=== PATIENT | female | born 1995 | race African-American/Black ===

== ENCOUNTER 2016-06-20 13:25 | Emergency (ER) | payer MEDICAID ==
[2016-06-20] MEDS ORDERED: NS 1,000 ML IV ONE (13:59)
--- NOTE | 2016-06-20 14:02 | EDPHY ---
H & P Stated Complaint: vaginal bleeding for 2 months Time Seen by Provider: 06/20/16 13:49 HPI/ROS: CHIEF COMPLAINT: Vaginal bleeding HISTORY OF PRESENT ILLNESS: Patient is a 21-year-old virgin from [facility] who comes to the emergency department complaining of frequent spotting and vaginal bleeding for the last 2 months. She states that it is constant bleeding small amounts every day. Occasionally heavy as well. She has not had a fever. She denies having any pain. She does not take any medications. She states that this did happen a few times before while she was living in [facility] and she was started on control pills for a few months and this seemed to resolve the problem. She has not taken anything in over a year. She denies having any GI or urinary symptoms. REVIEW OF SYSTEMS: Constitutional: denies: chills, fever, recent illness, recent injury EENTM: denies: blurred vision, double vision, nose congestion Respiratory: denies: cough, shortness of breath Cardiac: denies: chest pain, irregular heart rate, lightheadedness, palpitations Gastrointestinal/Abdominal: denies: abdominal pain, diarrhea, nausea, vomiting, blood streaked stools Genitourinary: See HPI denies: dysuria, frequency, hematuria, pain Musculoskeletal: denies: joint pain, muscle pain Skin: denies: lesions, rash, jaundice, bruising Neurological: denies: headache, numbness, paresthesia, tingling, dizziness, weakness Hematologic/Lymphatic: denies: blood clots, easy bleeding, easy bruising Immunologic/allergic: denies: HIV/AIDS, transplant EXAM: GENERAL: Well-appearing, well-nourished and in no acute distress. HEAD: Atraumatic, normocephalic. EYES: Pupils equal round and reactive to light, extraocular movements intact, sclera anicteric, conjunctiva are normal. ENT: TMs normal, nares patent, oropharynx clear without exudates. Moist mucous membranes. NECK: Normal range of motion, supple without lymphadenopathy or JVD. LUNGS: Breath sounds clear to auscultation bilaterally and equal. No wheezes rales or rhonchi. HEART: Regular rate and rhythm without murmurs, rubs or gallops. ABDOMEN: Soft, nontender, normoactive bowel sounds. No guarding, no rebound. No masses appreciated. BACK: No CVA tenderness, no spinal tenderness, step-offs or deformities EXTREMITIES: Normal range of motion, no pitting or edema. No clubbing or cyanosis. NEUROLOGICAL: Cranial nerves II through XII grossly intact. Normal speech, normal gait. 5/5 strength, normal movement in all extremities, normal sensation PSYCH: Normal mood, normal affect. SKIN: Warm, dry, normal turgor, no visible rashes or lesions. Source: Patient Exam Limitations: No limitations - Personal History LMP (Females 10-55): Irregular Current Tetanus/Diphtheria Vaccine: Unsure Current Tetanus Diphtheria and Acellular Pertussis (TDAP): Unsure - Medical/Surgical History Hx Asthma: No Hx Chronic Respiratory Disease: No Hx Diabetes: No Hx Cardiac Disease: No Hx Renal Disease: No Hx Cirrhosis: No Hx Alcoholism: No Hx HIV/AIDS: No Hx Splenectomy or Spleen Trauma: No Other PMH: denies - Family History Significant Family History: No pertinent family hx - Social History Smoking Status: Never smoked Alcohol Use: Sober Drug Use: None Constitutional: Initial Vital Signs Temperature (C) 36.6 C 06/20/16 13:27 Heart Rate 74 06/20/16 13:27 Respiratory Rate 16 06/20/16 13:27 Blood Pressure 114/74 06/20/16 13:27 O2 Sat (%) 97 06/20/16 13:27 O2 Delivery Mode Room Air Allergies/Adverse Reactions: No Known Allergies Allergy (Verified 06/20/16 13:32) Home Medications: Medication Instructions Recorded Ethinyl Estradiol/Drospirenone 1 each PO DAILY #1 pkg 06/20/16 [Charisse 28 Tablet] Medical Decision Making ED Course/Re-evaluation: 4:50 p.m. we discussed the lab and imaging results. The patient is reassured. She continues to decline pelvic exam. She states that her bleeding is only spotting. She is requesting to be started on control pills. I will start her on 1 and have [facility]. She declines further workup or testing at this time. Differential Diagnosis: Partial list of the Differential diagnosis considered include but were not limited to; dysfunctional uterine bleeding, , urinary tract infection and although unlikely based on the history and physical exam, I also considered appendicitis, ovarian cyst, ovarian torsion, STD. I discussed these differential diagnoses and the plan with the patient as well as the usual and expected course. The patient understands that the diagnosis is provisional and that in medicine we are not always correct and that further workup is often warranted. Usual and customary warnings were given. All of the patient's questions were answered. The patient was instructed to return to the emergency department should the symptoms at all worsen or return, otherwise to followup with the physician as we discussed. - Data Points Laboratory Results: Laboratory Results 06/20/16 14:02 06/20/16 14:02 06/20/16 06/20/16 14:40 14:02 WBC 7.57 10^3/uL (3.80-9.50) RBC 5.46 H 10^6/uL (4.18-5.33) Hgb 13.2 g/dL (12.6-16.3) Hct 41.3 % (38.0-47.0) MCV 75.6 L fL (81.5-99.8) MCH 24.2 L pg (27.9-34.1) MCHC 32.0 L g/dL (32.4-36.7) RDW 16.0 H % (11.5-15.2) Plt Count 257 10^3/uL (150-400) MPV 12.5 H fL (8.7-11.7) Neut % (Auto) 62.0 % (39.3-74.2) Lymph % (Auto) 31.2 % (15.0-45.0) [place] % (Auto) 4.5 % (4.5-13.0) Eos % (Auto) 1.5 % (0.6-7.6) Baso % (Auto) 0.5 % (0.3-1.7) Nucleat RBC Rel Count 0.0 % (0.0-0.2) Absolute Neuts (auto) 4.70 10^3/uL (1.70-6.50) Absolute Lymphs (auto) 2.36 10^3/uL (1.00-3.00) Absolute Monos (auto) 0.34 10^3/uL (0.30-0.80) Absolute Eos (auto) 0.11 10^3/uL (0.03-0.40) Absolute Basos (auto) 0.04 10^3/uL (0.02-0.10) Absolute Nucleated RBC 0.00 10^3/uL (0-0.01) Immature Gran % 0.3 % (0.0-1.1) Immature Gran # 0.02 10^3/uL (0.00-0.10) Sodium 146 H mEq/L (134-144) Potassium 4.1 mEq/L (3.5-5.2) Chloride 109 mEq/L (97-110) Carbon Dioxide 22 mEq/l (22-31) Anion Gap 15 mEq/L (8-16) BUN 12 mg/dL (7-23) Creatinine 0.7 mg/dL (0.6-1.0) Estimated GFR > 60 Glucose 88 mg/dL (70-100) Calcium 9.2 mg/dL (8.5-10.4) Beta HCG, Qual NEGATIVE Urine Color YELLOW Urine Appearance CLEAR Urine pH 7.0 (5.0-7.5) Ur Specific [place] 1.021 (1.002-1.030) Urine Protein NEGATIVE (NEGATIVE) Urine Ketones NEGATIVE (NEGATIVE) Urine Blood 3+ H (NEGATIVE) Urine Nitrate NEGATIVE (NEGATIVE) Urine Bilirubin NEGATIVE (NEGATIVE) Urine Urobilinogen NEGATIVE EU (0.2-1.0) Ur Leukocyte Esterase NEGATIVE (NEGATIVE) Urine RBC 50-182 H /hpf (0-3) Urine WBC 3-5 H /hpf (0-3) Ur Epithelial Cells TRACE /lpf (NONE-1+) Urine Mucus TRACE /lpf (NONE-1+) Ur Culture Indicated? NOT INDICATED (NI) Urine Glucose NEGATIVE (NEGATIVE) Medications Given: Discontinued Medications Sodium Chloride (Ns) 1,000 mls @ 0 mls/hr IV ONCE ONE PRN Reason: Wide Open Stop: 06/20/16 14:00 Last Admin: 06/20/16 14:15 Dose: 1,000 mls Departure - Departure Disposition: Home, Routine, Self-Care Clinical Impression: Dysfunctional uterine bleeding Condition: Fair Instructions: Dysfunctional Uterine Bleeding (ED) Referrals: NONE *PRIMARY CARE P,. [Primary Care Provider] - As per Instructions Joi Cooney MD [Medical Doctor] - As per Instructions Prescriptions: Ethinyl Estradiol/Drospirenone [Charisse 28 Tablet] 1 each PO DAILY #1 pkg
[2016-06-20 14:15] LABS: % IMMATURE GRANULYOCYTES 0.3 % (0.0-1.1); ABSOLUTE IMMATURE GRANULOCYTES 0.02 10^3/uL (0.00-0.10); ADD DIFF? NO; ADD MORPH? NO; ADD SCAN? NO; ATYPICAL LYMPHOCYTE FLAG 30 (0-99); FRAGMENT RBC FLAG 20 (0-99); HEMATOCRIT 41.3 % (38.0-47.0); HEMOGLOBIN 13.2 g/dL (12.6-16.3); LEFT SHIFT FLG 0 (0-99); LIPEMIA HEMOLYSIS FLAG 80 (0-99); MEAN CELL HEMOGLOBIN 24.2 pg (27.9-34.1); MEAN CELL VOLUME 75.6 fL (81.5-99.8); MEAN PLATELET VOLUME 12.5 fL (8.7-11.7); PLATELET CLUMPS FLAG 0 (0-99); PLATELET COUNT 257 10^3/uL (150-400); RED BLOOD CELL COUNT 5.46 10^6/uL (4.18-5.33)
[2016-06-20 14:27] LABS: ANION GAP 15 mEq/L (8-16); CALCIUM 9.2 mg/dL (8.5-10.4); CARBON DIOXIDE 22 mEq/l (22-31); CHLORIDE 109 mEq/L (97-110); CREATININE 0.7 mg/dL (0.6-1.0); GLOMERULAR FILTRATION RATE > 60; GLUCOSE 88 mg/dL (70-100); POTASSIUM 4.1 mEq/L (3.5-5.2); SODIUM 146 mEq/L (134-144)
[2016-06-20 14:47] LABS: COLOR YELLOW; LEUKOCYTE ESTERASE,URINE NEGATIVE (NEGATIVE); NITRITE,URINE NEGATIVE (NEGATIVE)
[2016-06-20 14:53] LABS: MUCUS TRACE /lpf (NONE-1+); RBC,URINE 50-182 /hpf (0-3)
--- NOTE | 2016-06-20 16:29 | US ---
Transabdominal Pelvic Ultrasound History: 21-year-old, bleeding for 2 months consistently with occasional cramping. Comparison: None available. Findings: Transabdominal imaging only was performed. The uterus is retroflexed, measuring 6.8 x 4.7 x 3.1 cm. T he endometrium is homogeneous and measures 11 mm. The left ovary measures 3.1 x 2.2 x 3.2 cm. The rig ht ovary measures 2.3 x 1.6 x 4.1 cm. No adnexal masses are identified. Normal arterial blood flow i s documented to both ovaries by Doppler ultrasound. Trace free fluid is present. The bladder is rajat l. Impression: Normal pelvic ultrasound. Findings discussed with Ramez Beckett today at 1627 hours.
[2016-06-20 17:07] VITALS: BP 113/81; PULSE 63; RESP 18; TEMP 98.2; O2SAT 98
== END 2016-06-20 18:14 | disposition home or self-care (01) ==
DX: N93.8 Other specified abnormal uterine and vaginal bleeding (principal)

== ENCOUNTER 2017-09-03 08:47 | Emergency (ER) | payer MEDICAID ==
[2017-09-03 08:55] VITALS: BP 122/89
--- NOTE | 2017-09-03 09:11 | EDPHY ---
H & P Smoking Status: Current some day smoker Time Seen by Provider: 09/03/17 09:03 HPI/ROS: CHIEF COMPLAINT: "Toothache" HISTORY OF PRESENT ILLNESS: 22-year-old immunocompetent female with no pre- existing dentist complaining of 4 days of right molar pain. No trismus no drooling. No fetid odor or foul taste in mouth. Questionable soft tissue swelling and asymmetry to the face subjectively. No fever no chills. No change in voice. PHYSICAL EXAM (Prior to examination, patient consented to physical exam, hands were washed and my usual and customary physical exam procedures followed) 1) GENERAL: Well-developed, well-nourished, alert and oriented. Appears to be in no acute distress. 2) HEAD: Normocephalic 3) HEENT: sclera anicteric. No trismus no drooling. Tender to percussion teeth 30 and 31. No signs of abscess. Floor of mouth soft no induration, no tenderness, no [place] appearance. The submandibular and submental spaces are soft. There is submandibular adenopathy with no evidence of Eulalio's angina. No crepitus 4) LUNGS: Breathing comfortably. (Sav,Roxane Shae) Constitutional: Initial Vital Signs Temperature (C) 37 C 09/03/17 08:53 Heart Rate 68 09/03/17 08:53 Respiratory Rate 16 09/03/17 08:53 Blood Pressure 122/89 H 09/03/17 08:53 O2 Sat (%) 97 09/03/17 08:53 O2 Delivery Mode Room Air Allergies/Adverse Reactions: No Known Allergies Allergy (Verified 09/03/17 08:52) Home Medications: Medication Instructions Recorded Amoxicillin/Clavulanate Pot 875 mg PO BID #14 tab 09/03/17 [Augmentin 875 mg tab] Hydrocodone/APAP 5/325 [[place] 1 tab PO Q6 PRN #7 tab 09/03/17 5/325 (RX)] Ibuprofen 09/03/17 MDM/Departure - MDM ED Course/Re-evaluation: 9:07 a.m.: No evidence of Eulalio's angina, doubt deep space infection. I left message with the dental aid 24 hr phone number will, with no patient identifying information. I do not think that imaging studies are currently indicated. Plan will be discharge with antibiotics, analgesia and dental aid follow-up information. Usual and customary discharge precautions instructions provided. Care of patient under supervision of secondary supervising physician Dr Olivia. (Roxane Ang) I did not see this patient while she was in the emergency department. However her care was discussed with the PA while the patient was in the department. I agree with treatment plan and management (Skip Olivia S) - Depart Disposition: Home, Routine, Self-Care Clinical Impression: Odontalgia Condition: Good Instructions: Toothache (ED) Additional Instructions: Return to the ER immediately if you cannot swallow, have drooling, fevers, neck stiffness, cannot open your jaw, or any other symptoms that concern you. Prescriptions: Amoxicillin/Clavulanate Pot [Augmentin 875 mg tab] 875 mg PO BID #14 tab Hydrocodone/APAP 5/325 [[place] 5/325 (RX)] 1 tab PO Q6 PRN #7 tab PRN Reason: Pain, Severe Referrals: Dental Aid [Outside] - 1-2 days without fail
== END 2017-09-03 09:20 | disposition home or self-care (01) ==
DX: K08.89 Other specified disorders of teeth and supporting structures (principal); F17.200 Nicotine dependence, unspecified, uncomplicated